=== PATIENT | female | born 1985 | race Caucasian/White ===

== ENCOUNTER 2019-01-24 02:04 | Outpatient (CLI) | payer BC | END 2019-01-24 23:59 | disposition home or self-care (01) | LOC: DIABETIC 02:04 | PROVIDERS: ATTEND Surgery | DX: Z71.3 Dietary counseling and surveillance (principal); Z01.818 Encounter for other preprocedural examination; E66.01 Morbid (severe) obesity due to excess calories; Z68.39 Body mass index [BMI] 39.0-39.9, adult | CPT/HCPCS: G0108 ==

== ENCOUNTER 2019-02-07 04:28 | Outpatient (CLI) | payer BC | END 2019-02-07 23:59 | disposition home or self-care (01) | LOC: DIABETIC 04:28 | PROVIDERS: ATTEND Surgery | DX: Z01.818 Encounter for other preprocedural examination (principal); E66.01 Morbid (severe) obesity due to excess calories; K21.9 Gastro-esophageal reflux disease without esophagitis; M19.90 Unspecified osteoarthritis, unspecified site | CPT/HCPCS: 97802 ==

== ENCOUNTER 2019-03-21 04:48 | Outpatient (CLI) | payer BC | END 2019-03-21 23:59 | disposition home or self-care (01) | LOC: DIABETIC 04:48 | PROVIDERS: ATTEND Surgery | DX: Z71.3 Dietary counseling and surveillance (principal); E66.01 Morbid (severe) obesity due to excess calories; Z68.41 Body mass index [BMI] 40.0-44.9, adult; K21.9 Gastro-esophageal reflux disease without esophagitis; G47.33 Obstructive sleep apnea (adult) (pediatric) | CPT/HCPCS: 97803 ==

== ENCOUNTER 2019-07-09 17:18 | Emergency (ER) | payer BC ==
[~2019-07-09] VITALS: Ht 162.6 cm; Wt 81.8 kg
[2019-07-09] MEDS ORDERED: ondansetron/PF 4mg/2ml inj IV ONE (18:20)
[2019-07-09] MEDS ORDERED: normal saline 1000ML IV soln IVB ONE ×2 (18:20→19:50)
[2019-07-09] MEDS ORDERED: ketorolac tromethamine 15mg/ml inj. IV ONE (18:20)
[2019-07-09 18:40] LABS: BASOPHILS % (AUTO) 0.3 % (0-1); EOSINOPHILS % (AUTO) 0.5 % (0-6); HEMATOCRIT 42.1 % (35.0-45.0); HEMOGLOBIN 14.5 g/dl (12.0-16.0); LYMPHOCYTES # (AUTO) 0.4 X10'3 (1.1-4.8); LYMPHOCYTES % (AUTO) 6.2 % (21-51); MEAN CORPUSCULAR HEMOGLOBIN 31.7 PG (27.0-31.0); MEAN CORPUSCULAR HGB CONC 34.4 g/dL (33.0-36.5); MEAN CORPUSCULAR VOLUME 92.1 FL (78-98); MEAN PLATELET VOLUME 8.7 FL (7.4-10.4); MONOCYTES # (AUTO) 0.3 X10'3 (0-0.9); MONOCYTES % (AUTO) 5.1 % (2-12); NEUTROPHILS # (AUTO) 5.1 X10'3 (1.8-7.7); NEUTROPHILS % (AUTO) 87.9 % (42-75); PLATELET COUNT 226 X10'3 (140-440); RED BLOOD COUNT 4.57 X10'6 (4.20-5.60); RED CELL DISTRIBUTION WIDTH 12.6 % (11.5-14.5); WHITE BLOOD COUNT 5.8 X10'3 (4.5-11.0)
[2019-07-09 18:48] LABS: ALANINE AMINOTRANSFERASE 30 U/L (12-78); ALBUMIN 3.4 G/DL (3.4-5.0); ALBUMIN/GLOBULIN RATIO 0.9 (1.1-1.5); ALKALINE PHOSPHATASE 46 IU/L (46-116); ANION GAP 16 (8-16); ASPARTATE AMINO TRANSFERASE 22 U/L (10-37); BILIRUBIN,TOTAL 0.8 MG/DL (0.1-1.0); BLOOD UREA NITROGEN 13 MG/DL (7-18); BUN/CREATININE RATIO 16.7 (6.6-38.0); CALCIUM 8.4 MG/DL (8.5-10.1); CHLORIDE 104 MMOL/L (99-107); CREATININE 0.78 MG/DL (0.40-0.90); GLUCOSE 78 MG/DL (70-104); POTASSIUM 3.7 MMOL/L (3.5-5.1); SODIUM 137 MMOL/L (135-145); TOTAL CARBON DIOXIDE 17.4 MMOL/L (24-32); eGFR 85 ML/MIN
[2019-07-09] MEDS ORDERED: diphenhydrAMINE 25mg capsule PO ONE (19:50)
[2019-07-09] MEDS ORDERED: dicyclomine 10 MG capsule PO ONE (19:50)
[2019-07-09] MEDS ORDERED: proCHLORperazine 10mg tablet PO ONE (19:50)
[2019-07-09 21:11] LABS: URINE HCG NEGATIVE (NEG)
[2019-07-09 21:14] LABS: COLOR,URINE YELLOW (Yellow); GLUCOSE, URINE NEGATIVE (Neg); KETONES,URINE >=80 mg/dl (Neg); LEUKOCYTE ESTERASE ,URINE NEGATIVE (Neg); NITRITES, URINE NEGATIVE (Neg); OCCULT BLOOD,URINE LARGE (Neg); PH,URINE 5.5 (4.8-8.0); PROTEIN,URINE TRACE mg/dl (Neg); UROBILINOGEN,URINE 0.2 E.U/dL (0.2-1.0)
--- NOTE | 2019-07-09 21:19 | NUR ---
WAITING FOR UA RESULTS BEFORE DISCHARGE
[2019-07-09 21:23] LABS: CLARITY,URINE SLIGHTLY CLOUDY (Clear); UA COLLECTION TYPE CLN CATCH MIDSTREAM
[2019-07-09 21:25] LABS: BACTERIA,URINE FEW /HPF (Neg); COARSE GRANULAR CAST 0-3 /LPF (NEGATIVE); HYALINE CASTS 0-3 /LPF (NEGATIVE); MUCUS STRANDS MODERATE /LPF (Neg); RBC,URINE 0-2 /HPF (0-2); SQUAMOUS EPITHELIAL CELL,UR FEW /LPF (FEW); WBC,URINE NONE SEEN /HPF (0-4)
[2019-07-09] MEDS ORDERED: DICY10CA88 PO (21:30)
[2019-07-09] MEDS ORDERED: ONDA4TAB6 PO (21:30)
[2019-07-09 21:32] VITALS: BP 122/69
== END 2019-07-09 21:34 | disposition home or self-care (01) ==
LOC: ER 17:18
DX: R11.2 Nausea with vomiting, unspecified (principal); R19.7 Diarrhea, unspecified; R00.0 Tachycardia, unspecified; R10.84 Generalized abdominal pain; R50.9 Fever, unspecified; R61 Generalized hyperhidrosis; R59.0 Localized enlarged lymph nodes; Z88.8 Allergy status to other drugs, medicaments and biological substances; Z79.899 Other long term (current) drug therapy
CPT/HCPCS: 36415; 80053; 81001; 81025; 85025; 87502; 87503; 93005; 96361; 96374; 96375; 99284; J1885; J2405; J7030; Q0163; Q0164